=== PATIENT | male | born 1945 | race Caucasian/White ===

== ENCOUNTER 2017-02-27 13:43 | Emergency (ER) | payer MEDICARE, OTHER ==
[2017-02-27 13:54] VITALS: BP 133/73; PULSE 85; RESP 20; TEMP 98.5
--- NOTE | 2017-02-27 13:59 | ED ---
General Adult HPI - General Chief complaint: Extremity Injury, Upper Stated complaint: L elbow injury Time Seen by Provider: 02/27/17 13:55 Source: patient, RN notes reviewed Mode of arrival: ambulatory Limitations: no limitations - History of Present Illness Initial comments: 71-year-old male presents to the emergency department chief complaint of left elbow pain. Patient states that on Friday he tripped and fell and hit his elbow on the fire pit. Patient states continued to hurt since then he has had immediate better but did not get any better so he sought care. Patient states he went to [facility] didn't x-ray they were concerned for possible fracture and sent him here to have a CAT scan. He states that he is able to move it does have some tenderness. He does not some swelling to the area. He states he did not hit his head and nothing else was injured during this incident. He was concerned due to the pain in the elbows without that he should be seen. Patient denies any recent fever, chills, shortness of breath, chest pain, back pain, abdominal pain, nausea vomiting, numbness or tingling, dysuria or hematuria, constipation or diarrhea, headaches or visual changes, or any other current symptoms. - Related Data Home Medications Medication Instructions Recorded Confirmed Escitalopram [Lexapro] 1 tab PO DAILY 02/27/17 02/27/17 Sulfamethoxazole/Trimethoprim 1 tab PO BID 02/27/17 02/27/17 [Bactrim DS 800-160 mg] Allergies Allergy/AdvReac Type Severity Reaction Status Date / Time acetaminophen [From Vicodin] Allergy Hallucinati Verified 02/27/17 13:50 ons hydrocodone [From Vicodin] Allergy Hallucinati Verified 02/27/17 13:50 ons oxycodone [From OxyContin] Allergy Hallucinati Verified 02/27/17 13:50 ons Review of Systems ROS Statement: Those systems with pertinent positive or pertinent negative responses have been documented in the HPI. ROS Other: All systems not noted in ROS Statement are negative. Past Medical History Past Medical History: No Reported History History of Any Multi-Drug Resistant Organisms: None Reported Past Surgical History: Appendectomy, Joint Replacement, Orthopedic Surgery Past Psychological History: Depression Smoking Status: Never smoker Past Alcohol Use History: Rare Past Drug Use History: None Reported General Exam - General Exam Comments Initial Comments: General: The patient is awake and alert, in no distress, and does not appear acutely ill. Neck: The neck is supple, there is no tenderness. Cardiovascular: There is a regular rate and rhythm. No murmur, rub or gallop is appreciated. Respiratory: Lungs are clear to auscultation, respirations are non-labored, breath sounds are equal. No wheezes, stridor, rales, or rhonchi. Musculoskeletal: Sensation intact with 2+ pulses. Left upper extremity. Friend Malagasy left shoulder. Patient does have friend Malagasy left elbow with pain at extremes of extension. There is some swelling to the posterior elbow with tenderness to palpation diffusely around the elbow. Neurological: CN II-XII intact, There are no obvious motor or sensory deficits. Coordination appears grossly intact. Speech is normal. Skin: Skin is warm and dry and no rashes or lesions are noted. Psychiatric: Normal mood and affect. Limitations: no limitations Course Vital Signs 02/27/17 13:51 Temperature 98.5 F Pulse Rate 85 Respiratory 20 Rate Blood Pressure 133/73 Medical Decision Making - Medical Decision Making 71-year-old male presents for left elbow pain after fall. He had x-rays done at another clinic that were not brought to us that [facility] for fracture. This and we'll do a CAT scan to see the patient's injury. at this time CT elbow was reviewed and negative. We discussed follow up and return parameters. They are in agreement with plan and all questions answered. - Radiology Data Radiology results: report reviewed, image reviewed Disposition Clinical Impression: Left elbow contusion Disposition: HOME SELF-CARE Condition: Stable Instructions: Contusion in Adults (ED) Additional Instructions: Please use medication as discussed. Please follow up with family doctor if symptoms have not improved over the next two days. Please return to the emergency room if your symptoms increase or worsen or for any other concerns. Referrals: Scarlet Valle MD [STAFF PHYSICIAN] - 1-2 days Time of Disposition: 14:50
--- NOTE | 2017-02-27 14:46 | CT ---
EXAMINATION TYPE: CT elbow LT wo con DATE OF EXAM: 02/27/2017 COMPARISON: NONE HISTORY: left elbow pain following fall TECHNIQUE: Helical acquisition through the left elbow was obtained without intravenous contrast. The data was reformatted in axial, coronal and sagittal projections. CT DLP: 1502 mGycm Automated exposure control for dose reduction was used. FINDINGS: The soft tissues are unremarkable. There is a small olecranon spur. The study is rather gra iny. No definite fracture is seen. No loose bodies identified. No definite joint effusion is seen. IMPRESSION: 1. NO ACUTE OSSEOUS LESION. 2. SMALL OLECRANON SPUR.
== END 2017-02-27 14:56 | disposition home or self-care (01) ==
LOC: EC 13:43
DX: S50.02XA Contusion of left elbow, initial encounter (principal); F32.9 Major depressive disorder, single episode, unspecified; Z98.890 Other specified postprocedural states; Z79.899 Other long term (current) drug therapy; Z88.5 Allergy status to narcotic agent; Z88.8 Allergy status to other drugs, medicaments and biological substances; W01.198A Fall on same level from slipping, tripping and stumbling with subsequent striking against other object, initial encounter
CPT/HCPCS: 99283